=== PATIENT | male | born 1945 | race Caucasian/White ===

== ENCOUNTER 2017-05-10 19:55 | Inpatient (IN) | payer MEDICARE ==
[~2017-05-10] VITALS: Ht 177.8 cm; Wt 88.5 kg
--- NOTE | 2017-05-10 19:20 | NUR ---
PT IN ROOM, SPOUSE PRESENT. SPOUSE STATES PT HAD A HAMBURGER FROM [employer] FOR DINNER. PT REQUESTED URINAL. EXPLAINED ADMISSION PROCESS WITH VERBALIZED UNDERSTANDING.
[2017-05-10] MEDS ORDERED: ALPHAGAN 0.2%5 ML EACH EYE (20:16)
[2017-05-10] MEDS ORDERED: DEXAMETHASONE4 MG/ML IV (20:18)
[2017-05-10] MEDS ORDERED: COLACE100 MG PO (20:18)
[2017-05-10] MEDS ORDERED: PEPCID INJ20 MG/2 ML IV (20:19)
[2017-05-10] MEDS ORDERED: HUMULIN R100 U/ML SC (20:20)
[2017-05-10] MEDS ORDERED: XALATAN 0.0052.5 ML EACH EYE (20:21)
[2017-05-10] MEDS ORDERED: ROBAXIN-750750 MG PO (20:22)
[2017-05-10] MEDS ORDERED: MIRALAX17 GM PO (20:23)
[2017-05-10] MEDS ORDERED: OXYCONTIN15 MG PO (20:23)
[2017-05-10] MEDS ORDERED: VALIUM SYR10 MG/2 ML IVP (20:25)
[2017-05-10] MEDS ORDERED: BENADRYL INJ50 MG/ML IV (20:26)
[2017-05-10] MEDS ORDERED: NALOXONE HC0.4 MG/M2 IV (20:27)
[2017-05-10] MEDS ORDERED: REGLAN INJ10 MG/2 ML IV (20:27)
[2017-05-10] MEDS ORDERED: PHENERGAN6.25 MG/5 PO (20:28)
[2017-05-10 21:15] VITALS: BP 116/81
[2017-05-10 22:14] VITALS: BP 116/81; BMI 28.0
--- NOTE | 2017-05-10 23:00 | NUR ---
PT ADMISSION PROCESS COMPLETED, PT PARTICIPATED IN PROCESS.
--- NOTE | 2017-05-11 04:21 | NUR ---
PT RESTING QUIETLY WATCHING TV, STATES HAS SLEPT FAIRLY WELL. PT HAS DIFFICULTY GETTING OUT OF BED AND REQUESTS URINAL.
[2017-05-11 07:41] LABS: BASOPHILS 0.1 % (0-2); EOSINOPHILS 0.4 % (0-7); IMMATURE GRANULOCYTES 0.8 % (0-5); LYMPHOCYTES 12.5 % (15-50); MCH 32.5 pg (26.0-34.0); MCHC 34.4 g/dL (31.0-37.0); MCV 94.7 fL (80.0-100.0); MEAN PLATELET VOLUME 9.2 fL (7.4-10.4); MONOCYTES 12.7 % (2-11); NEUTROPHILS 73.5 % (40-80); PLATELET COUNT 282 10x3/uL (130-400); RBC 3.38 10x6/uL (4.20-6.10); RDW 13.8 % (11.5-14.5); WBC 10.5 10x3/uL (4.8-10.8)
--- NOTE | 2017-05-11 08:00 | NUR ---
SHIFT ASSMT COMPLETED.DENIES NEEDS.BREAKFAST GIVEN.CL IN REACH.INCISION TO BACK WITH DANN C/D/I.BRACE TO BE ON WHEN OOB.
[2017-05-11 08:02] LABS: CALC OSMOLALITY 275 mosm/kg (275-300); CALCIUM 8.4 mg/dL (8.5-10.1); CHLORIDE - SERUM 101 mmol/L (98-107); CREATININE - SERUM 0.9 mg/dL (0.6-1.3); GLUCOSE 145 mg/dL (74-106); POTASSIUM - SERUM 3.5 mmol/L (3.5-5.1); SODIUM 135 mmol/L (136-145); UREA NITROGEN 20 mg/dL (7-18); eGFR NON AFRICAN AMERICAN 88 mL/min (90-120)
[2017-05-11 08:57] VITALS: BP 129/87
[2017-05-11 10:31] VITALS: Ht 177.8 cm; Wt 88.5 kg
--- NOTE | 2017-05-11 12:00 | NUR ---
LUNCH GIVEN.CL IN REACH. AT BEDSIDE.
--- NOTE | 2017-05-11 15:36 | NUR ---
CARE TEAM MEETING: MET WITH SPOUSE AND PLANS ARE FOR PATIENT TO RETURN HOME AT DISCHARGE. PATIENT NEW [facility] AND WILL BE RA AT NEXT MEETING. WILL CONTINUE TO FOLLOW WITH PATIENT
--- NOTE | 2017-05-11 16:00 | NUR ---
RESTING QUIETLY.CL IN REACH.
--- NOTE | 2017-05-11 19:45 | NUR ---
PT. IN BED WITH HOB UP FOR COMFORT AND IS WATCHING TV. ASSESSMENT COMPLETED. NO VOICED NEEDS AT THIS TIME. CALL LIGHT WITHIN REACH.
[2017-05-11 20:11] VITALS: BP 105/75
--- NOTE | 2017-05-11 23:19 | NUR ---
PT. IN BED WITH HOB UP FOR COMFORT WITH EYES CLOSED AND RESP. EVEN. CALL LIGHT WITHIN REACH.
--- NOTE | 2017-05-12 08:00 | NUR ---
SHIFT ASSMT COMPLETED.ASSISTED TO SIDE OF BED WITH BACK BRACE IN PLACE.
[2017-05-12 08:48] VITALS: BP 147/87
--- NOTE | 2017-05-12 12:00 | NUR ---
VISITING WITH FAMILY.
[2017-05-12 19:00] VITALS: BP 116/59
--- NOTE | 2017-05-12 19:45 | NUR ---
PT IN BED WITH HOB UP FOR COMFORT. WATCHING TV. ALERT & ORIENTED. NO O2. NO IV. FSBS ACHS. INCISION FROM TOP OF NECK TO BOTTOM OF BACK, DANN INTACT. BACK BRACE WHEN UP. BM TODAY. BED IN LOWEST POSITION AND CALL LIGHT WITHIN REACH.
--- NOTE | 2017-05-12 19:55 | NUR ---
IN BED, EYES CLOSED. NO DISTRESS NOTED.
--- NOTE | 2017-05-12 23:55 | NUR ---
PT IN BED WITH HOB UP FOR COMFORT. WATCHING TV. BED IN LOWEST POSITION AND CALL LIGHT WITHIN REACH.
--- NOTE | 2017-05-13 03:55 | NUR ---
PT IN BED WITH HOB UP FOR COMFORT. EYES CLOSED. CHEST RISING AND FALLING. BED IN LOWEST POSITION AND CALL LIGHT WITHIN REACH.
--- NOTE | 2017-05-13 06:00 | NUR ---
PT IN BED WITH HOB UP FOR COMFORT. WATCHING TV. BED IN LOWEST POSITION AND CALL LIGHT WITHIN REACH.
[2017-05-13 07:20] LABS: BASOPHILS 0 % (0-2); EOSINOPHILS 0.2 % (0-7); HEMATOCRIT 35.4 % (42.0-54.0); IMMATURE GRANULOCYTES 2.2 % (0-5); LYMPHOCYTES 10.5 % (15-50); MCH 32.4 pg (26.0-34.0); MCHC 33.9 g/dL (31.0-37.0); MCV 95.7 fL (80.0-100.0); MEAN PLATELET VOLUME 8.8 fL (7.4-10.4); MONOCYTES 11.4 % (2-11); NEUTROPHILS 75.7 % (40-80); PLATELET COUNT 406 10x3/uL (130-400); RDW 13.6 % (11.5-14.5); WBC 12.5 10x3/uL (4.8-10.8)
[2017-05-13 07:36] LABS: CALC OSMOLALITY 275 mosm/kg (275-300); CALCIUM 9.2 mg/dL (8.5-10.1); CARBON DIOXIDE 23.5 mmol/L (21.0-32.0); CHLORIDE - SERUM 99 mmol/L (98-107); CREATININE - SERUM 0.8 mg/dL (0.6-1.3); GLUCOSE 162 mg/dL (74-106); POTASSIUM - SERUM 3.7 mmol/L (3.5-5.1); SODIUM 135 mmol/L (136-145); UREA NITROGEN 18 mg/dL (7-18); eGFR NON AFRICAN AMERICAN > 90 mL/min (90-120)
--- NOTE | 2017-05-13 16:55 | NUR ---
RESTING QUIETLY IN BED WATCHING TV. PAIN MEDS GIVEN AT PT REQUEST. NO INCISION S/S OF INFECTION NOTED.
[2017-05-13 17:42] VITALS: BP 122/83
--- NOTE | 2017-05-13 19:35 | NUR ---
REST IN BED AND WATCH TV.
[2017-05-14 01:14] VITALS: BP 111/60
--- NOTE | 2017-05-14 03:15 | NUR ---
IN BED, EYES CLOSED. STIRRING A BIT.
--- NOTE | 2017-05-14 03:17 | NUR ---
REST QUIETLY IN BED, EYE CLOSE, BED LOW, CALL LIGHT IN REACH.
--- NOTE | 2017-05-14 07:24 | NUR ---
RESTING QUIETLY IN BED. EYES CLOSED. CALL LIGHT IN REACH.
[2017-05-14 09:25] VITALS: BP 153/75
--- NOTE | 2017-05-14 12:17 | NUR ---
LAYING DOWN IN BED. FAMILY IN ROOM VISITING. PAIN MEDS GIVEN REQUESTED. PT ANXIOUS ABOUT PAIN. DR PATEL CHANGED PAIN MEDS YESTERDAY AND PT REPORTS BETTER COMFORT BUT IS NOT PAIN FREE. WEARS BACK BRACE WHEN UP.
--- NOTE | 2017-05-14 16:52 | NUR ---
LAYING IN BED WATCHING TV. DOES NOT HAVE BACK BRACE ON AT PRESENT. DENIES WORSE OR NEW PAIN. TAKES PAIN MEDS Q4 HRS.
--- NOTE | 2017-05-14 19:24 | NUR ---
LYING IN BED WITH TV ON AND EYES OPEN. DINNER TRAY ON OVERBED TABLE WITH LID ON IT. REMOVED THE LID AND MEAL HAD NOT BEEN TOUCHED. ASKED IF HE WANTED THIS NURSE TO WARM UP HIS MEAL. REFUSED AND STATED HE DID'NT WANT IT AND WAS NOT HUNGRY. ASKED IF HE WANTED SOMETHING ELSE AND STATED "NO". EDUCATED HIM ON THE NEED TO EAT SOMETHING D/T DIABETES. VERBALIZED UNDERSTANDING AND STILL REFUSED ANYTHING TO EAT.
[2017-05-14 21:11] VITALS: BP 98/65
--- NOTE | 2017-05-14 22:04 | NUR ---
INCONTINENT OF BOWEL AND BLADDER THIS SHIFT. REQUIRED COMPLETE BED CHANGE X2 THIS SHIFT. C/O SHOULDER PAIN AT 9. MEDICATION GIVEN PER REQUEST AND STATED EFFECTIVENESS. DENIES ANY PAIN AT THIS TIME.
--- NOTE | 2017-05-15 04:32 | NUR ---
RESTING IN BED WITH EYES CLOSED ON LEFT SIDE. NO S/S OF DISTRESS OBSERVED. CALL LIGHT, URINAL AND OVERBED TABLE IN REACH.
--- NOTE | 2017-05-15 07:05 | NUR ---
RESTING QUIETLY IN BED. NO S/S DISTRESS OR NEEDS. CALL LIGHT IN REACH.
[2017-05-15 10:07] VITALS: BP 127/68
--- NOTE | 2017-05-15 13:46 | NUR ---
SHOWER GIVEN. PT ABLE TO WASH MOST OF BODY EXCEPT LOWER LEGS.
--- NOTE | 2017-05-15 22:08 | NUR ---
LYING IN BED WITH EYES OPEN AND TV ON. APPEARS RELAXED AND COMFORTABLE. DENIES ANY PAIN AT THAT TIME. URINAL EMPTIED AND RINSED OUT. CALL LIGHT AND OVERBED TABLE IN REACH.
[2017-05-15 23:46] VITALS: BP 127/70
--- NOTE | 2017-05-16 01:41 | NUR ---
PT RESTING QUIETLY, EYES CLOSED, RESPIRATIONS REGULAR AND UNLABORED, NO S/S OF ACUTE DISTRESS.
--- NOTE | 2017-05-16 06:37 | NUR ---
PT STATED HIS PAIN WAS UNDERCONTROL THIS AM. PT WATCHING TV.
--- NOTE | 2017-05-16 07:30 | NUR ---
PT IS RESTING IN BED WITH EYES OPEN. ALERT AND ORIENTED X 3. DENIES ACUTE DISCOMFORT AT THIS TIME. PT ASSISTED TO DON BACK BRACE AND SIT UP ON SIDE OF BED FOR BREAKFAST. FEEDING SELF WITHOUT DIFFICULTY. NO SWALLOWING PROBLEMS NOTED. SR'S ARE UP X 2 WHILE IN BED. CALL LIGHT AND BEDSIDE TABLE ARE WITHIN EASY REACH.
[2017-05-16 07:31] VITALS: BP 120/73
--- NOTE | 2017-05-16 09:52 | NUR ---
PT IS PARTICIPATING IN THERAPY AT THIS TIME.
--- NOTE | 2017-05-16 12:15 | NUR ---
PT IS FEEDING SELF LUNCH IN HIS ROOM. NO ACUTE DISTRESS NOTED.
--- NOTE | 2017-05-16 13:40 | NUR ---
PT IS PARTICIPATING IN THERAPY AT THIS TIME.
--- NOTE | 2017-05-16 14:22 | NUR ---
PT JUST RETURNED FROM THERAPY, CURRENTLY RESTING IN BED. PT DENIES NEEDS. WCTM.
--- NOTE | 2017-05-16 17:47 | NUR ---
PT IS FEEDING SELF SUPPER IN HIS ROOM. NO ACUTE DISTRESS NOTED.
[2017-05-16 18:48] VITALS: BP 142/72
--- NOTE | 2017-05-16 19:24 | NUR ---
RESTING IN BED WITH EYES CLOSED. NO S/S O F DISTRESS OBSERVED. CALL LIGHT,URINAL AND OVERBED TABLE IN REACH.
--- NOTE | 2017-05-16 20:00 | NUR ---
REQUESTED PAIN MEDICATION FOR BACK PAIN THAT HE DESCRIBBED AT [facility] IN HIS BACK. MEDS GIVEN PER ORDERS. WILL REASSESS PAIN.
--- NOTE | 2017-05-16 21:42 | NUR ---
RESTING IN BED WITH EYES CLOSED. NO S/S OF DISTRESS OBSERVED. CALL LIGHT AND OVERBED TABLE IN REACH.
--- NOTE | 2017-05-17 04:17 | NUR ---
RESTING IN BED WITH EYES CLOSED. NO S/S OF DISTRESS OBSERVED AT THIS TIME. CALL LIGHT, URINAL AND OVERBED TABLE IN REACH. ASSISTED TO TOILET EARLIER AND HAD INCONTINENT EPISODE OF BOWEL. REQUUIRED MAX ASSIST TO CHANGE PULL UP AND PANTS AND FOR PERICARE.
--- NOTE | 2017-05-17 06:20 | NUR ---
RESTING IN BED WITH EYES CLOSED. NO S/S OF DISTRESS OBSERVED. EASILY AROUSES WITH VERBAL STIMULI. FSBS MONITORED.CALL LIGHT AND OVERBED TABLE IN REACH.
[2017-05-17 07:40] VITALS: BP 150/82
--- NOTE | 2017-05-17 07:42 | NUR ---
PT RESTING IN BED WITH EYES OPEN CALL LIGHT IN REACH WILL MONITER
--- NOTE | 2017-05-17 08:00 | NUR ---
PT EATING BREAKFAST, DENIES NEEDS.
--- NOTE | 2017-05-17 12:44 | NUR ---
PT RESTING IN BED WITH EYES OPEN CALL LIGHT IN REACH WILL MONITER
--- NOTE | 2017-05-17 15:05 | NUR ---
CLINICALS FAXED TO SHALOM MAO RN AT , AUTH # [id number] , [id number]. WITH CONFORMATION RECIEVED
--- NOTE | 2017-05-17 19:25 | NUR ---
PT. IN BED WITH HOB UP FOR COMFORT AND IS WATCHING TV. REQUESTING PAIN MEDICATION FOR BACK PAIN. ASSESSMENT COMPLETED. CALL LIGHT WITHIN REACH.
[2017-05-17 21:18] VITALS: BP 109/71
--- NOTE | 2017-05-17 23:08 | NUR ---
PT. IN BED WITH HOB UP FOR COMFORT WITH EYES CLOSED AND RESP. EVEN. CALL LIGHT WITHIN REACH.
--- NOTE | 2017-05-18 03:04 | NUR ---
PT. IN BED WITH HOB UP FOR COMFORT WITH EYES CLOSED AND RESP. EVEN. CALL LIGHT WITHIN REACH.
--- NOTE | 2017-05-18 06:13 | NUR ---
PT. IN BED WITH HOB UP FOR COMFORT. EYES CLOSED AND RESP. EVEN. CALL LIGHT WITHIN REACH.
[2017-05-18 06:30] LABS: BASOPHILS 0.1 % (0-2); EOSINOPHILS 0.8 % (0-7); HEMATOCRIT 32.1 % (42.0-54.0); HEMOGLOBIN 10.7 g/dL (13.5-17.5); IMMATURE GRANULOCYTES 0.5 % (0-5); LYMPHOCYTES 12.2 % (15-50); MCH 31.9 pg (26.0-34.0); MCHC 33.3 g/dL (31.0-37.0); MCV 95.8 fL (80.0-100.0); MEAN PLATELET VOLUME 8.4 fL (7.4-10.4); MONOCYTES 6.6 % (2-11); NEUTROPHILS 79.8 % (40-80); RBC 3.35 10x6/uL (4.20-6.10); RDW 13.1 % (11.5-14.5)
[2017-05-18 06:35] LABS: PLATELET COUNT 496 10x3/uL (130-400)
[2017-05-18 06:59] LABS: CALC OSMOLALITY 272 mosm/kg (275-300); CALCIUM 8.4 mg/dL (8.5-10.1); CARBON DIOXIDE 23.7 mmol/L (21.0-32.0); CHLORIDE - SERUM 101 mmol/L (98-107); CREATININE - SERUM 0.8 mg/dL (0.6-1.3); GLUCOSE 122 mg/dL (74-106); POTASSIUM - SERUM 3.9 mmol/L (3.5-5.1); SODIUM 135 mmol/L (136-145); UREA NITROGEN 19 mg/dL (7-18); eGFR NON AFRICAN AMERICAN > 90 mL/min (90-120)
--- NOTE | 2017-05-18 07:33 | NUR ---
RESTING QUIETLY IN BED. EYES CLOSED. NO S/S DISTRESS OR NEEDS. CALL LIGHT IN REACH.
[2017-05-18 07:56] VITALS: BP 137/77
--- NOTE | 2017-05-18 11:05 | NUR ---
Nutrition Follow Up: Pt and reported that pt's appetite has been good. Pt stated that his menu was "messed up" yesterday and he did not get what he ordered x [address] for this mistake and encouraged pt to make RD aware should this happen again. RD will make supervisor felling bucking aware of this issue. Pt is eating 67% meal avg on a diabetic diet. +BM 05/17/17. Meds and labs reviewed. Rec continue current diet. RD following.
--- NOTE | 2017-05-18 15:20 | NUR ---
CARE TEAM MEETING: PATIENT DOING WELL IN THERAPY AND WILL TENATIVELY DISCHARGE ON 05/20/17 HOME WITH HIS SPOUSE. WILL CONTIUNE TO FOLLOW WITH PATIENT WILL ARRANGE FOR HOME HEALTH AT TIME OF DISCHARGE.
[2017-05-18 19:00] VITALS: BP 133/84
--- NOTE | 2017-05-18 20:00 | NUR ---
PT IN BED WITH HOB UP FOR COMFORT. WATCHING TV. ALERT & ORIENTED. NO O2. NO IV. FSBS ACHS. INCISION FROM BOTTOM OF NECK TO BOTTOM OF BACK, DANN INTACT. BACK BRACE WHEN UP. BED IN LOWEST POSITION AND CALL LIGHT WITHIN REACH
--- NOTE | 2017-05-19 | NUR ---
PT IN BED WITH HOB UP FOR COMFORT. WATCHING TV. BED IN LOWEST POSITION AND CALL LIGHT WITHIN REACH.
--- NOTE | 2017-05-19 00:40 | NUR ---
IN BED, AWAKE. WATCHING TV. NO COMPLAINTS AT THIS TIME.
--- NOTE | 2017-05-19 01:11 | NUR ---
PT IN BED WITH HOB UP FOR COMOFRT. WATCHING TV. BED IN LOWEST POSITION AND CALL LIGHT WITHIN REACH.
--- NOTE | 2017-05-19 04:19 | NUR ---
PT IN BED WITH HOB UP FOR COMFORT. WATCHING TV. BED IN LOWEST POSITION AND CALL LIGHT WITHIN REACH.
[2017-05-19 08:00] VITALS: BP 129/78
--- NOTE | 2017-05-19 08:00 | NUR ---
RESTING QUIETLY IN BED. CALL LIGHT IN REACH
--- NOTE | 2017-05-19 09:37 | NUR ---
AWAKE, WATCHING TV IN BED THIS MORNING. DENIES INCREASED PAIN AT PRESENT. CALL LIGHT IN REACH.
--- NOTE | 2017-05-19 12:01 | NUR ---
PT IS RESTING IN HIS ROOM EATING LUNCH. NO NEEDS VOICED.
--- NOTE | 2017-05-19 13:19 | NUR ---
PT REQ AND REC'D PRN PAIN MEDICATION FOR 7/10 PAIN TO MIDDLE/LOWER BACK. WCTM.
--- NOTE | 2017-05-19 13:36 | NUR ---
PT IS PARTICIPATING IN THERAPY AT THIS TIME. NO ACUTE DISTRESS NOTED.
--- NOTE | 2017-05-19 16:27 | NUR ---
PT IS RESTING IN BED WITH EYES OPEN. NO ACUTE DISTRESS NOTED.
--- NOTE | 2017-05-19 17:34 | NUR ---
SITTING UP EATING SUPPER. DENIES NEEDS. CALL LIGHT IN REACH.
--- NOTE | 2017-05-19 19:45 | NUR ---
REST IN BED AND WATCH TV.
[2017-05-19 20:00] VITALS: BP 106/78
--- NOTE | 2017-05-20 03:26 | NUR ---
REST QUIETLY IN BED, BED LOW, CALL LIGHT WITHIN REACH.
--- NOTE | 2017-05-20 04:05 | NUR ---
IN BED, RESTING QUIETLY, HOB UP 15 DEGREES. NO DISTRESS EVIDENT.
--- NOTE | 2017-05-20 07:30 | NUR ---
PT IS FEEDING SELF BREAKFAST IN BED. NO SWALLOW PROBLEMS NOTED. NO ACUTE COMPLAINT OF PAIN OR DISCOMFORT VOICED. SR'S ARE UP X 2 IN BED. CALL LIGHT AND BEDSIDE TABLE ARE WITHIN EASY REACH.
[2017-05-20] MEDS ORDERED: OXYCODONE HCL5 MG PO (08:48)
--- NOTE | 2017-05-20 09:20 | NUR ---
99 DANN REMOVED FROM PTS BACK. STERI STRIPS APPLIED TO ENTIRE INCISION. INSTRUCTIONS GIVEN TO PT TO LEAVE THEM ON UNTIL THEY FALL OFF NATURALLY. VERBAL UNDERSTANDING VOICED.
--- NOTE | 2017-05-20 10:17 | NUR ---
PATIENT DISCHARGING HOME WITH FAMILY. [facility] WILL FOLLOW WITH PATIENT AT HOME. NO NEW DME NEEDED PER PATIENT. HE HAS A ROLLING WALKER AT HOME. SOFIYA HOFF APN, AT [facility] 05/27/17 @ 10:30, DR. KARIN CHAMBERS AT [facility] 06/21/17 @ 10:00. RECORDS WERE HAND DELIVERED TO [facility] VIA [employer] ([facility]). PATIENT CHOICE FORM FOR HOME HEALTH AND [facility] FORM SIGNED, EXPLAINED AND FILED IN CHART. RECORDS FAXED TO [facility] [phone] WITH CONFORMATION RECIEVED
--- NOTE | 2017-05-20 10:27 | NUR ---
DISCHARGE INSTRUCTIONS GIVEN TO PT AND HIS WITH VERBAL UNDERSTANDING VOICED.
--- NOTE | 2017-05-20 10:47 | NUR ---
PT DC'D TO HOME AT THIS TIME. DEPARTED UNIT VIA WC PROPELLED BY STAFF. PT REY DID CAR TRANSFERS PRIOR TO PT LEAVING. RIMA CALLED IN TO [facility] IN [place]. PT DECLINED TO CALL IN OTHER MEDS STATING HE WILL HAVE THE [place] SUPPLY THEM.
--- NOTE | 2017-05-20 11:24 | NUR ---
DISCHARGE CLINICALS HAVE BEEN FAXED TO [facility] RN CC TO WITH CONFORMATION RECIEVED.
== END 2017-05-20 10:49 | disposition home health service (06) | DRG 552 ==
LOC: D.REHAB 19:55
PROVIDERS: ADMIT Emergency Medicine
DX: M43.26 Fusion of spine, lumbar region (principal); E11.40 Type 2 diabetes mellitus with diabetic neuropathy, unspecified; K21.9 Gastro-esophageal reflux disease without esophagitis; F17.200 Nicotine dependence, unspecified, uncomplicated; M54.5 Low back pain; Z98.890 Other specified postprocedural states